=== PATIENT | female | born 1985 ===

== ENCOUNTER → 2018-12-22 21:48 | Outpatient (REF) | payer BC, SELFPAY ==
[2018-12-22 23:03] LABS: Alanine Aminotransferase 13 IU/L (9-52); Albumin 4.1 g/dL (3.5-5.0); Albumin Globulin Ratio 1.5 (1.0-2.8); Alkaline Phosphatase 51 U/L (38-126); Aspartate Aminotransferase 21 IU/L (14-36); Blood Urea Nitrogen 15 mg/dL (7-17); Calcium 9.2 mg/dL (8.4-10.2); Carbon Dioxide 25 mmol/L (22-32); Chloride 106 mmol/L (98-107); Estimated Glomerular Filt Rate > 60.0 mL/min (>60); Globulin 2.8 g/dL (1.7-4.1); Glucose 80 mg/dL (70-100); HEMOLYSIS 15 (0-50); Potassium 4.6 mmol/L (3.4-5.1); Sodium 139 mmol/L (137-145); Total Protein 6.9 g/dL (6.3-8.2)
[2018-12-22 23:17] LABS: Hematocrit 39.5 % (36-46); Hemoglobin 13.2 g/dL (12.0-16.0); Mean Corpuscular HGB Conc 33.5 % (30-36); Mean Corpuscular Volume 95.7 fL (80-100); Platelet Count 227 X10^3/uL (150-400); Red Blood Cell Count 4.13 X10^6/uL (4.0-5.2); Red Cell Distribution Width 13.7 % (11.6-14.8); White Blood Cell Count 5.4 X10^3/uL (4.5-11.0)
[2018-12-22 23:22] LABS: Add Manual Diff / Slide Review YES
[2018-12-23 00:27] LABS: Progesterone, Total 4.06 ng/mL
[2018-12-23 02:01] LABS: RBC Morphology Normal Morphology
[2018-12-25 14:01] LABS: Testosterone, Total 18.6; Testosterone,Free 1.5
[2018-12-26 14:42] LABS: Estrogen 257.1 pg/mL
== END ==
LOC: LAB 21:48
PROVIDERS: Visit Provider Naturopath
DX: N80.9 Endometriosis, unspecified (principal); Z13.89 Encounter for screening for other disorder; R10.30 Lower abdominal pain, unspecified; F43.23 Adjustment disorder with mixed anxiety and depressed mood
CPT/HCPCS: 36415; 80053; 82672; 84144; 84402; 84403; 85025